=== PATIENT | female | born 1940 | race Caucasian/White ===

== ENCOUNTER 2016-12-25 21:42 | Emergency (ER) | payer MEDICARE, OTHER ==
[~2016-12-25] VITALS: Ht 162.6 cm; Wt 81.0 kg
[~2016-12-25 21:42] MED LIST: DOXY100T PO; SULF1TAB47 PO; Z.0.UNKNOWN
[2016-12-25 21:51] VITALS: BP 133/62; PULSE 78; RESP 16; TEMP 98.5; O2SAT 96
[2016-12-25] MEDS ORDERED: cholesterol med (22:06)
[2016-12-25] MEDS ORDERED: HTN med (22:06)
--- NOTE | 2016-12-25 22:06 | PD ---
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 MECHANICAL FALL, NO SYNCOPE OR LOC...WITNESSED BY HER . PFSH Past Medical History High Cholesterol: Yes Diminished Hearing: No ?: Not Menopausal: Yes Past Surgical History Gynecologic Surgery: Yes (OVARIAN CYST) Social History Alcohol Use: Yes (1 GLASS OF WINE A DAY) Tobacco Use: No Substance Use: No Allergies-Medications (Allergen,Severity, Reaction): Coded Allergies: No Known Allergies (Verified , 04/06/10) Reported Meds & Prescriptions Reported Meds & Active Scripts Active Doxycycline Hyclate 100 mg (Doxycycline Hyclate) 100 Mg Cap 1 Tab PO BID 10 Days Bactrim Ds (Trimethoprim/Sulfamethoxazole) Tab 1 Tab PO BID 10 Days Reported [cholesterol med] [HTN med] Unknown Meds (Miscellaneous Medication) Misc Review of Systems Except as stated in HPI: all other systems reviewed are Neg Skin: Positive Other (3 INCH LACERATION) Physical Exam Narrative GENERAL: SKIN: Warm and dry. RT TRICEP AREA HAS 7.5CM LACERATION, NO EXPOSED TENDON OR MUSCLE. HEAD: Atraumatic. Normocephalic. EYES: Pupils equal and round. No scleral icterus. No injection or drainage. ENT: No nasal bleeding or discharge. Mucous membranes pink and moist. NECK: Trachea midline. No JVD. CARDIOVASCULAR: Regular rate and rhythm. RESPIRATORY: No accessory muscle use. Clear to auscultation. Breath sounds equal bilaterally. GASTROINTESTINAL: Abdomen soft, non-tender, nondistended. MUSCULOSKELETAL: Extremities without clubbing, cyanosis, or edema. No obvious deformities. NEUROLOGICAL: Awake and alert. No obvious cranial nerve deficits. Motor grossly within normal limits. Five out of 5 muscle strength in the arms and legs. Normal speech. PSYCHIATRIC: Appropriate mood and affect; insight and judgment normal. Data Data Last Documented VS Vital Signs Date Time Temp Pulse Resp B/P (MAP) Pulse Ox O2 Delivery O2 Flow Rate FiO2 12/25/16 22:43 12/25/16 21:51 98.5 78 16 96 Orders Orders Lidocaine 1% Inj (50 Ml) (Xylocaine 1% I (12/25/16 22:15) Ed Discharge Order (12/25/16 22:42) MDM Medical Decision Making Medical Screen Exam Complete: Yes Emergency Medical Condition: Yes Medical Record Reviewed: Yes Differential Diagnosis LACERATION V TENDON V MUSCLE INJURY Narrative Course UPON EXAMINATION LACERATION ONLY INVOLVING SKIN AND NOT ANY DEEPER (SPARING MUSCLE AND TENDONS). REPAIR PERFORMED SEE PROCEDURE NOTE Procedures Procedure Narrative LACERATION LOCATION: [RT TRICEP] LENGTH: [7.5CM] NUMBER OF STITCHES/TAN: [6-] REPAIR: The area of the laceration was prepped with Betadine and sterilely draped. The laceration was infiltrated with [1% LIDO ML]. The wound was copiously irrigated and explored without evidence of foreign body, tendon injury or neurovascular injury. The wound was closed using [3-0 PROLENE, 4 SINGLE INTERRUPTED AND 2 HORIZONTAL MATTRESS]. This was a [SINGLE] layer repair. A sterile dressing was applied. The patient was advised to keep the dressing clean and dry. Patient tolerated the procedure well. Diagnosis Primary Impression: RIGHT TRICEP LACERATION S/P SUTURE REPAIR Patient Instructions: General Instructions, Laceration (ED) Additional Instructions: RETURN IN 10 DAYS Disposition: 01 DISCHARGE HOME Condition: Stable Christiano Bailey MD Dec 25, 2016 22:06
[2016-12-25] MEDS ORDERED: LIDOCAINE HCL 1% 50 ML VIAL INFIL ONE (22:15)
== END 2016-12-25 22:46 | disposition home or self-care (01) ==
LOC: PHEFT 21:42
DX: S41.111A Laceration without foreign body of right upper arm, initial encounter (principal); W01.0XXA Fall on same level from slipping, tripping and stumbling without subsequent striking against object, initial encounter
CPT/HCPCS: 12002